=== PATIENT | female | born 1955 | race Caucasian/White ===

== ENCOUNTER 2017-12-16 09:11 | Emergency (ER) | payer MEDICAID ==
[~2017-12-16] VITALS: Ht 160 cm; Wt 47.5 kg
[~2017-12-16 09:11] MED LIST: WARF5TAB PO
[2017-12-16 09:12] VITALS: BP 123/82
[2017-12-16] MEDS ORDERED: methylPREDNISolone SOD SUCC 125 MG/2 ML IVP ONE (10:00)
[2017-12-16] MEDS ORDERED: SODIUM CHLORIDE FLUSH 10ML SYR IVF ONE (10:00)
[2017-12-16] MEDS ORDERED: METH40TA3 PO (10:12)
[2017-12-16] MEDS ORDERED: WARF6TAB PO (10:12)
[2017-12-16] MEDS ORDERED: ASPI-496 PO (10:12)
[2017-12-16 10:31] LABS: BASOPHILS # (AUTO) 0.01 x10^3/uL (0-0.1); BASOPHILS % (AUTO) 0 % (0-1); EOSINOPHILS # (AUTO) 0.05 x10^3/uL (0-0.4); EOSINOPHILS % (AUTO) 1 % (1-7); LYMPHOCYTES # (AUTO) 1.57 x10^3/uL (1-3.4); LYMPHOCYTES % (AUTO) 16 % (22-44); MD NO; MEAN CORPUSCULAR HEMOGLOBIN 31.3 pg (27.0-34.8); MEAN CORPUSCULAR HGB CONC 33.3 g/dL (32.4-35.8); MEAN CORPUSCULAR VOLUME 93.9 fL (80-100); MEAN PLATELET VOLUME 8.8 fL (7.4-10.4); MONOCYTES # (AUTO) 0.69 x10^3/uL (0.2-0.8); MONOCYTES % (AUTO) 7 % (2-9); NEUTROPHILS # (AUTO) 7.68 x10^3/uL (1.8-6.8); NEUTROPHILS % (AUTO) 77 % (42-75); PLATELET COUNT 119 x10^3/uL (130-400); RED BLOOD COUNT 5.07 x10^6/uL (3.82-5.3); RED CELL DISTRIBUTION WIDTH 13.8 % (9.6-15.2)
[2017-12-16 10:44] LABS: ALANINE AMINOTRANSFERASE 65 U/L (12-78); ALBUMIN 3.6 g/dL (3.4-5.0); ANION GAP 4 mmol/L (5-15); CALCIUM 8.7 mg/dL (8.5-10.1); CHLORIDE 100 mmol/L (98-107); CREATININE 0.97 mg/dL (0.55-1.02)
[2017-12-16 10:48] LABS: ALKALINE PHOSPHATASE 82 U/L (45-117); BILIRUBIN,TOTAL 0.5 mg/dL (0.2-1.0); TOTAL PROTEIN 8.4 g/dL (6.4-8.2)
[2017-12-16 10:59] LABS: INTERNATIONAL NORMALIZED RATIO 1.17 (0.93-1.1)
== END 2017-12-16 12:09 | disposition home or self-care (01) ==
LOC: ED 11:51
DX: J20.8 Acute bronchitis due to other specified organisms (principal); L02.413 Cutaneous abscess of right upper limb
CPT/HCPCS: 36415; 71046; 80053; 85025; 85610; 99285; J7512

== ENCOUNTER 2018-11-18 18:19 | Inpatient (IN) | payer MEDICAID ==
[~2018-11-18] VITALS: Ht 160 cm; Wt 44.6 kg
[~2018-11-18 18:19] MED LIST changes: +ASPI-496 PO; +CEFD300C37 PO; +ENOX40SY4 SQ; +METH40TA3 PO; +WARF6TAB PO; +WARF7.5T PO-COUM
[2018-11-18 19:07] LABS: ALBUMIN 3.5 g/dL (3.4-5.0); ANION GAP 7 mmol/L (5-15); CALCIUM 8.6 mg/dL (8.5-10.1); CHLORIDE 96 mmol/L (98-107); CREATININE 1.08 mg/dL (0.55-1.02)
[2018-11-18] MEDS ORDERED: ASPIRIN 81 MG TABLET CHEW PO ONE (19:25)
[2018-11-18 19:30] LABS: INTERNATIONAL NORMALIZED RATIO > 12.00 (0.93-1.1); PROTHROMBIN TIME 140.5 Seconds (9.6-11.5)
[2018-11-18 19:37] LABS: BASOPHILS # (AUTO) 0.01 x10^3/uL (0-0.1); BASOPHILS % (AUTO) 0 % (0-1); EOSINOPHILS % (AUTO) 0 % (1-7); LYMPHOCYTES # (AUTO) 1.06 x10^3/uL (1-3.4); LYMPHOCYTES % (AUTO) 13 % (22-44); MD NO; MEAN CORPUSCULAR HEMOGLOBIN 30.9 pg (27.0-34.8); MEAN CORPUSCULAR HGB CONC 33.1 g/dL (32.4-35.8); MEAN CORPUSCULAR VOLUME 93.3 fL (80-100); MEAN PLATELET VOLUME 9.3 fL (7.4-10.4); MONOCYTES # (AUTO) 1.11 x10^3/uL (0.2-0.8); MONOCYTES % (AUTO) 14 % (2-9); NEUTROPHILS # (AUTO) 5.97 x10^3/uL (1.8-6.8); NEUTROPHILS % (AUTO) 73 % (42-75); PLATELET COUNT 134 x10^3/uL (130-400); RED BLOOD COUNT 5.22 x10^6/uL (3.82-5.3); RED CELL DISTRIBUTION WIDTH 14.3 % (9.6-15.2)
[2018-11-18] MEDS ORDERED: WARF5TAB PO (20:19)
[2018-11-18] MEDS ORDERED: METH5SYR PO (20:19)
[2018-11-18] MEDS ORDERED: LABETALOL 5MG/ML, 20ML IVPush PRN (20:30)
[2018-11-18] MEDS ORDERED: ONDANSETRON ODT 4 MG PO PRN (20:30)
[2018-11-18] MEDS ORDERED: DOCUSATE 100 MG CAPSULE PO PRN (20:30)
[2018-11-18] MEDS ORDERED: NITROGLYCERIN 0.4 MG BOTTLE (25 TABS) SL PRN (20:30)
[2018-11-18] MEDS ORDERED: GUAIFENESIN/DM 200-20MG, 10ML UDC PO PRN (20:30)
[2018-11-18] MEDS ORDERED: ACETAMINOPHEN 325 MG TABLET PO PRN (20:30)
[2018-11-18] MEDS ORDERED: ONDANSETRON 2MG/ML, 2ML IVPush PRN (20:30)
[2018-11-18 21:05] LABS: TROPONIN I 0.193 ng/mL (0.000-0.045)
[2018-11-18 21:16] LABS: HEMOGLOBIN A1C 5.2 % (4.2-6.3)
[2018-11-18 21:32] VITALS: BP 105/70
[2018-11-18] MEDS: CEFTRIAXONE PMX 1GM/50ML 50 ML IV SCH (22:25)
[2018-11-18] MEDS: TRAZODONE 50MG TABLET PO PRN (23:04)
[2018-11-19 02:13] VITALS: BP 95/54
[2018-11-19 02:25] LABS: BASOPHILS # (AUTO) 0.02 x10^3/uL (0-0.1); BASOPHILS % (AUTO) 0 % (0-1); EOSINOPHILS # (AUTO) 0.01 x10^3/uL (0-0.4); EOSINOPHILS % (AUTO) 0 % (1-7); LYMPHOCYTES # (AUTO) 1.48 x10^3/uL (1-3.4); LYMPHOCYTES % (AUTO) 22 % (22-44); MD NO; MEAN CORPUSCULAR HEMOGLOBIN 31.3 pg (27.0-34.8); MEAN CORPUSCULAR HGB CONC 33.5 g/dL (32.4-35.8); MEAN CORPUSCULAR VOLUME 93.4 fL (80-100); MONOCYTES # (AUTO) 0.89 x10^3/uL (0.2-0.8); MONOCYTES % (AUTO) 13 % (2-9); NEUTROPHILS % (AUTO) 65 % (42-75); PLATELET COUNT 114 x10^3/uL (130-400); RED BLOOD COUNT 4.54 x10^6/uL (3.82-5.3); RED CELL DISTRIBUTION WIDTH 13.9 % (9.6-15.2)
[2018-11-19 02:38] LABS: ALANINE AMINOTRANSFERASE 34 U/L (12-78); ALBUMIN 2.9 g/dL (3.4-5.0); ANION GAP 5 mmol/L (5-15); CALCIUM 8.1 mg/dL (8.5-10.1); CHLORIDE 98 mmol/L (98-107); CHOLESTEROL, TOTAL 80 mg/dL (140-239); CREATININE 0.88 mg/dL (0.55-1.02); TRIGLYCERIDES 80 mg/dL (50-200); VLDL CHOLESTEROL 16 mg/dL (0-25)
[2018-11-19 02:40] LABS: ALKALINE PHOSPHATASE 54 U/L (45-117); BILIRUBIN,TOTAL 0.5 mg/dL (0.2-1.0); CHOL/HDL RATIO 2.6; HDL CHOL % 39 % (28-40); HDL CHOLESTEROL (DIRECT) 31 mg/dL (40-60); LDL CHOLESTEROL,CALCULATED 33 mg/dL (54-169); LDL/HDL RATIO 1.1 (0.5-3.0); TROPONIN I 0.157 ng/mL (0.000-0.045)
[2018-11-19 02:41] LABS: INTERNATIONAL NORMALIZED RATIO > 12.00 (0.93-1.1); PROTHROMBIN TIME 161.7 Seconds (9.6-11.5)
[2018-11-19] MEDS ORDERED: PHYTONADIONE 5 MG TABLET PO ONE (03:30)
[2018-11-19 07:11] VITALS: BP 104/67
[2018-11-19] MEDS: AZITHROMYCIN 500 MG TABLET PO SCH (07:27)
[2018-11-19] MEDS ORDERED: ALBUTEROL/IPRATROPIUM 2.5MG/0.5MG, 3 ML ONE (07:47)
[2018-11-19] MEDS ORDERED: METH5SYR PO (07:49)
[2018-11-19] MEDS ORDERED: METHADONE 10 MG TABLET ONE (07:59)
[2018-11-19] MEDS: METHADONE 40 MG TABLET.SOL PO SCH (08:01)
[2018-11-19] MEDS: METHADONE 5 MG TABLET PO SCH (08:01)
[2018-11-19] MEDS: ALBUTEROL/IPRATROPIUM 2.5MG/0.5MG, 3 ML NPPB SCH ×3 (11:00→19:45)
[2018-11-19 14:02] VITALS: BP 94/59
[2018-11-19] MEDS ORDERED: OMNIPAQUE 350 MG/ML, 75ML BOTTLE ONE (16:32)
[2018-11-19 19:24] VITALS: BP 93/52
[2018-11-19] MEDS: CEFTRIAXONE PMX 1GM/50ML 50 ML IV SCH (20:14)
[2018-11-19] MEDS: TRAZODONE 50MG TABLET PO PRN (20:14)
[2018-11-20 04:10] VITALS: BP 96/55
[2018-11-20] MEDS: ALBUTEROL/IPRATROPIUM 2.5MG/0.5MG, 3 ML NPPB SCH ×4 (07:15→20:45)
[2018-11-20 07:34] VITALS: BP 105/66
[2018-11-20] MEDS ORDERED: METHADONE 10 MG TABLET ONE (09:04)
[2018-11-20] MEDS: AZITHROMYCIN 500 MG TABLET PO SCH (09:18)
[2018-11-20] MEDS: METHADONE 5 MG TABLET PO SCH (09:18)
[2018-11-20] MEDS: METHADONE 40 MG TABLET.SOL PO SCH (09:19)
[2018-11-20 10:06] LABS: INTERNATIONAL NORMALIZED RATIO 3.18 (0.93-1.1); PROTHROMBIN TIME 32.2 Seconds (9.6-11.5)
[2018-11-20] MEDS ORDERED: HOLD COUMADIN MC PRN (12:30)
[2018-11-20 13:26] VITALS: BP 91/57
[2018-11-20 19:41] VITALS: BP 99/67
[2018-11-20] MEDS: CEFTRIAXONE PMX 1GM/50ML 50 ML IV SCH (20:16)
[2018-11-20] MEDS: TRAZODONE 50MG TABLET PO PRN ×2 (21:35→21:36)
[2018-11-21 01:16] VITALS: BP 95/60
[2018-11-21] MEDS: ALBUTEROL/IPRATROPIUM 2.5MG/0.5MG, 3 ML NPPB SCH ×2 (06:27→12:05)
[2018-11-21 07:20] VITALS: BP 91/53
[2018-11-21] MEDS: METHADONE 40 MG TABLET.SOL PO SCH (09:00)
[2018-11-21] MEDS ORDERED: REGADENOSON 0.4 MG/5 ML SYRINGE ONE (09:27)
[2018-11-21] MEDS ORDERED: METHADONE 10 MG TABLET ONE (12:34)
[2018-11-21] MEDS: AZITHROMYCIN 500 MG TABLET PO SCH (12:36)
[2018-11-21] MEDS: METHADONE 5 MG TABLET PO SCH (12:37)
[2018-11-21 13:18] LABS: INTERNATIONAL NORMALIZED RATIO 1.95 (0.93-1.1); PROTHROMBIN TIME 20.1 Seconds (9.6-11.5)
[2018-11-21] MEDS ORDERED: CEFD300C37 PO (15:04)
[2018-11-21] MEDS ORDERED: AZIT500T5 PO (15:04)
[2018-11-21] MEDS ORDERED: IPRA3AMP30 NPPB (15:04)
[2018-11-21] MEDS ORDERED: WARFARIN 5 MG TABLET PO-COUM ONE (18:00)
== END 2018-11-21 16:00 | disposition home or self-care (01) | DRG 193 ==
LOC: ED 19:39 → EDIP 19:50 → 4WST 22:18 → DCLOUNGE 11-21 15:39
PROVIDERS: ADMIT Internal Medicine; ATTEND Internal Medicine
DX: J15.4 Pneumonia due to other streptococci (principal); J96.00 Acute respiratory failure, unspecified whether with hypoxia or hypercapnia; J44.0 Chronic obstructive pulmonary disease with (acute) lower respiratory infection; E87.1 Hypo-osmolality and hyponatremia; D68.9 Coagulation defect, unspecified; G89.4 Chronic pain syndrome; F11.90 Opioid use, unspecified, uncomplicated; I34.1 Nonrheumatic mitral (valve) prolapse; T45.515A Adverse effect of anticoagulants, initial encounter; R73.9 Hyperglycemia, unspecified; J98.01 Acute bronchospasm; N28.9 Disorder of kidney and ureter, unspecified; I25.9 Chronic ischemic heart disease, unspecified; Z99.81 Dependence on supplemental oxygen; Z95.2 Presence of prosthetic heart valve; Z79.01 Long term (current) use of anticoagulants
CPT/HCPCS: 36415; 99285; J7620; 71046; 71260; 78452; 80048; 80053; 80061; 82040; 83036; 84484; 85025; 85610; 87040; 87070; 87077; 87181; 87184; 87205; 93005; 93017; 93306; 94640; G0378; J0696; J2785; Q9967; A9502; C9898

== ENCOUNTER 2020-11-06 09:56 | Emergency (ER) | payer MEDICAID ==
[~2020-11-06] VITALS: Ht 157.5 cm; Wt 46.9 kg
[~2020-11-06 09:56] MED LIST changes: +AZIT500T10 PO; +IPRA3AMP30 NPPB; +METH5SYR PO; -WARF5TAB PO; +WARF5TAB2 PO
[2020-11-06 10:01] VITALS: BP 159/71
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
[2020-11-06 10:53] LABS: INTERNATIONAL NORMALIZED RATIO 2.49 (0.93-1.1); PROTHROMBIN TIME 26.2 Seconds (9.6-11.5)
[2020-11-06] MEDS ORDERED: HYDROmorphone 1 MG/ML, 1ML INJ ONE (11:46)
[2020-11-06] MEDS ORDERED: HYDROmorphone 2 MG/ML, 1ML IM ONE (12:00)
--- NOTE | 2020-11-06 12:30 | NUR ---
DPatient/Caregiver given discharge instructions and they have confirmed that they understand the instructions. Patient ambulatory with steady gait.
== END 2020-11-06 12:32 | disposition home or self-care (01) ==
LOC: ED 10:22
DX: S52.031A Displaced fracture of olecranon process with intraarticular extension of right ulna, initial encounter for closed fracture (principal); F17.200 Nicotine dependence, unspecified, uncomplicated; W01.0XXA Fall on same level from slipping, tripping and stumbling without subsequent striking against object, initial encounter; Y93.89 Activity, other specified; Y92.410 Unspecified street and highway as the place of occurrence of the external cause; Y99.8 Other external cause status
CPT/HCPCS: 29105; 36415; 73080; 85610; 96372; 99284; J1170